=== PATIENT | female | born 1970 | race Caucasian/White ===

== ENCOUNTER 2017-07-15 19:31 | Inpatient (IN) ==
[2017-07-15] MEDS ORDERED: ONDANSETRON 4 MG/2 ML VIAL IV STA (20:47)
[2017-07-15] MEDS ORDERED: PANTOPRAZOLE 40 MG VIAL IV STA (20:47)
[2017-07-15] MEDS ORDERED: CLINDAMYCIN INJ 900 MG in PREMIX 1 EACH IV STA (20:47)
[2017-07-15] MEDS ORDERED: KETOROLAC 30 MG/1 ML VIAL IV STA (20:47)
[2017-07-15] MEDS ORDERED: DICYCLOMINE 20 MG/2 ML AMP IM ONE ×2 (20:50→22:11)
--- NOTE | 2017-07-15 20:53 | Emergency Department Note ---
Arrival - Arrival Chief Complaint: Abdominal / Flank Pain Stated Complaint: feel like inside is on fire/posssible staff ED Nursing Triage Note: C/O Generalized abd pain/nausea/vomiting. Onset 1330 today. Pt reports that it feels like her insides are on fire. Last BM-today- normal. Denies urinary s/s. Unknown fever at home. Pt also reports that she has an abscess to right buttock that has been there for a couple of days. Mode of Arrival: Ambulatory Limitations: No Limitations Source: Patient Time Seen by Provider: 07/15/17 20:47 - History of Present Illness HPI Narrative: This 46-year-old white female presents with onset of midepigastric intense burning pain and nausea of abrupt onset 6 hours ago. She denies preethi vomiting , chills, fever, diarrhea, heartburn, belching, indigestion, history of peptic ulcer disease, pancreatitis, or inflammatory bowel disease. She cannot relate the pain to anything nor has she experienced anything similar in the past. Coincident to this is complaints of a tender hard lesion of the right buttocks. This she relates has been present for a week and again she denies systemic chills or fever. Currently she is in no acute distress. Onset (ago): hour(s) Date of Last Menstrual Period: 2 weeks ago Allergies/Adverse Reactions: Allergies Allergy/AdvReac Type Severity Reaction Status Date / Time metoclopramide [From Reglan] AdvReac Intermediate Unknown/Unable Verified 19:49 to obtain Home Medications: Home Medications Medication Instructions Recorded Confirmed Type No Known Home Medications [No 07/15/17 07/15/17 History Known Home Medications] Review of System - Review of System 12 point system: reviewed and no additional remarkable complaints except as stated - Review of System Constitutional: Present: as per HPI Gastrointestinal: Present: as per HPI Skin: Present: as per HPI Medical,Surgical,& Family Hx - Social History Smoking Status: Never smoker Frequency of Alcohol Use: None Type of Drug Use: None Exam Physical Examination: GENERAL: Well developed, well nourished white female in no acute distress. HEENT: Normocephalic. No trauma. Moist mucous membranes. EOMI. PERRLA. ENT NML NECK: Supple. No adenopathy. CARDIAC: Regular. No murmurs heart rate 75 CHEST: Clear to auscultation. No respiratory distress. O2 99% ABDOMEN: Soft. Tender mid epigastrium and right upper quadrant. Hypoactive bowel sounds. 2 cm hard firm tender cellulitis. Abscess of the right buttocks EXTREMITIES: No trauma. Normal ROM. No pedal edema. SKIN: No diaphoresis. No rash. Buttocks as above NEURO: Alert. Neuro intact no focal deficits. Vital Signs: Vital Signs Temperature 98.8 F 07/15/17 19:49 Pulse Rate 67 07/15/17 21:10 Respiratory Rate 20 07/15/17 21:10 Blood Pressure 114/75 07/15/17 21:10 O2 Sat by Pulse Oximetry 100 07/15/17 21:10 Course - Reevaluation(s) Reevaluation #1: Discussed with patient that she has acute cholecystitis as well as a complex cystic right adnexal mass - Consultations Consultation #1: Discussed with Dr. Singleton who will admit for further evaluation treatment. Results - Labs CBC & BMP: 07/15/17 21:48 07/15/17 21:48 Labs: I have reviewed the lab and noted its gross normalcy. - Impressions EKG: Sinus rhythm at 61 with normal NM interval and QRS duration. Normal ST segments. Normal EKG. - Diagnostic Findings Procedure: CT Abdomen and Pelvis: image reviewed by me, report reviewed by me ( Acute cholecystitis and complex cystic right adnexal mass) Disposition Clinical Impression: Acute cholecystitis, Right adnexal mass Case discussed with: patient, patient's family Disposition: Still a Patient Condition: Stable Time of Disposition: 00:01
--- NOTE | 2017-07-15 21:43 | EKG Report ---
Stationary ECG Study [facility] ER Test Date: 07/15/2017 9:43:23 PM Pat Name: EL MORATAYA Department: Room: Gender: F Geophysical Party Chief: : 1970 Requested by: Tony Miguel Order Number: [id number] Reading MD: RASTA SKY Intervals [place] Rate: 61 P: 74 [place]: 146 QRS: 49 QRSD: 86 T: 46 QT: 403 QTc: 407 Interpretive Statements SINUS RHYTHM Electronically Signed On 07-16-17 07:59:39 CDT by RASTA SKY [email or web address]
[2017-07-15] MEDS ORDERED: ONDANSETRON 4 MG/2 ML VIAL ONE (22:11)
[2017-07-15] MEDS ORDERED: CLINDAMYCIN INJ 50 ML IV ONE (22:11)
[2017-07-15] MEDS ORDERED: KETOROLAC 30 MG/1 ML VIAL ONE (22:11)
[2017-07-15] MEDS ORDERED: PANTOPRAZOLE 40 MG VIAL IV ONE (22:11)
[2017-07-15 22:36] LABS: Basophils % 0.4 % (0.0-0.8); Hematocrit 39.5 VOL% (35.7-47.0); Hemoglobin 13.1 GM/DL (12.0-16.0); Immature Granulocytes % 0.2 %; Immature Granulocytes Absolute 0.02 #; Lymphocytes # 1.1 10*3/uL (1.4-4.0); Lymphocytes % 10.9 % (21.3-54.2); Mean Corpuscular HGB Conc 33.2 GM/DL (32-36); Mean Corpuscular Hemoglobin 29 PG (27-34); Mean Corpuscular Volume 85.9 FL (87-102); Mean Platelet Volume 11.5 FL (9.6-12.0); Monocytes # 0.5 10*3/uL (0.11-0.8); Monocytes % 4.8 % (1.7-12.7); Neutrophils # 8.3 10*3/uL (1.4-7.4); Neutrophils % 83.7 % (38.7-73.9); Platelet Count 197 T/CUMM (130-400); Red Cell Distribution Width 14.9 % (9.3-17.3); White Blood Count 9.9 T/CUMM (4-12)
[2017-07-15 22:51] LABS: Apearance,Urine Slightly Hazy (Clear); Bacteria,Urine Few /HPF (Few); Bilirubin,Urine Negative (Negative); Blood, Urine Small mg/dL (Negative); Glucose,Urine (UA) 150 mg/dL (Negative); Ketones,Urine 5 mg/dL (Negative); Mucus,Urine Occasional /LPF (Occasional); Nitrite,Urine Negative (Negative); Protein,Urine Negative; RBC,Urine 3 /HPF (0-4); Squamous Epithelial Cell,Urine Occasional /HPF (0-10); Urine Color Yellow (Yellow); Urine Specific Gravity 1.015 (1.001-1.035); Urine Urobilinogen < 2.0 EU/DL (0.2-1.0); WBC,Urine 4 /HPF (0-6)
[2017-07-15 22:57] LABS: Lactic Acid 1.2 MMOL/L (0.4-2.0)
[2017-07-15 22:58] LABS: Albumin 4.1 G/DL (3.4-5.0); Bilirubin,Total 0.4 MG/DL (0.2-1.0); Calcium 9.1 MG/DL (8.5-10.1); Osmolality,Calculated 277.5 MOS/KG (273-304); Potassium 3.9 MMOL/L (3.5-5.1); Total Protein 7.6 G/DL (6.4-8.3)
[2017-07-16] MEDS ORDERED: LEVOFLOXACIN INJ 750 MG in PREMIX 1 EACH IV STA (00:04)
[2017-07-16] MEDS ORDERED: ONDANSETRON 4 MG/2 ML VIAL IV PRN ×2 (00:04→16:28)
[2017-07-16] MEDS ORDERED: ONDANSETRON 4 MG/2 ML VIAL IV ONE (00:25)
[2017-07-16] MEDS ORDERED: HYDROmorphone 2 MG/1 ML VIAL IV ONE (00:25)
[2017-07-16] MEDS ORDERED: ONDANSETRON 4 MG/2 ML VIAL ONE ×3 (00:26→17:25)
[2017-07-16] MEDS ORDERED: LEVOFLOXACIN INJ 150 ML IV ONE (00:26)
[2017-07-16] MEDS ORDERED: HYDROmorphone 2 MG/1 ML VIAL ONE ×2 (00:26→16:10)
[2017-07-16] MEDS: LACTATED RINGERS 1,000 ML IV SCH ×2 (02:28→12:30)
--- NOTE | 2017-07-16 07:23 | General Surg History&Physical ---
Assessment and Plan (1) Cholecystitis Status: Acute Assessment and plan: I have recommended laparoscopic cholecystectomy for cholecystitis. I have discussed the risks, benefits, and alternatives of the operation with the patient, and the expected outcomes have been reviewed. The patient would like to proceed with the operation. She also has a right adnexal cystic mass that can be addressed later. This is not symptomatic. She does have a history of ovarian cyst she says. Current Visit: Yes History of Present Illness Chief complaint: Abdominal pain History of present illness: Ms. Diaz is a 46 year old female who developed abdominal pain around 1:00 yesterday after eating and lasted about 30 minutes. It subsided but came back again was worse located in the midepigastrium and right upper quadrant. She had nausea no vomiting. [place] like her stomach was on fire. She has had tubal ligation and some other abdominal surgery but she is not sure the type. Home Medications Medication Instructions Recorded Confirmed Type No Known Home Medications [No 07/15/17 07/15/17 History Known Home Medications] Allergies Allergy/AdvReac Type Severity Reaction Status Date / Time metoclopramide [From Reglan] AdvReac Intermediate Unknown/Unable Verified 19:49 to obtain Medical,Surgical,& Family Hx - Medical History Genitourinary: History of: Bladder Problem (bladder sling), Recurring Urinary Tract Infections (4 to 5 times a year.) Gastrointestinal: History of: GERD Reproductive: History of: Abnormal Pap Smear (2013), Ovarian Cysts (resolved.) Other: History of: Miscellaneous Medical Problems (lyme disease/ resolved) - Surgical History Thoracic Surgeries: Patient denies;: Organ Transplant Abdominal Surgeries: Surgical HX of: Appendectomy (1983) Reproductive Surgeries: Surgical HX of;: Section (2002), Tubal Ligation (2013) Patient denies;: Genitourinary Surgery - Family History Family History: Reports;: Family Cancer (Dad melanoma), Family Hematology (Dad has to have blood drawn off.), Family Hypertension (mom and dad), Family Stroke (mother passed from a stroke. 2012) Denies;: Family Diabetes, Family Heart Disease, Family Psychiatric Problems - Social History Smoking Status: Never smoker Frequency of Alcohol Use: None Type of Drug Use: None Exam - Constitutional Vitals: Period Temp Pulse Resp BP Sys/[place] Pulse Ox Last 24 Hr 97.3 F-98.8 F 61-82 16-20 86-114/53-77 98-100 General appearance: normal weight, no acute distress - Head Head exam: Present: normal inspection, normocephalic - Eye Eye exam: Present: EOMI. Absent: scleral icterus Pupils: Present: SEBAS - ENT ENT exam: Present: normal exam Mouth exam: Present: normal external inspection, normal voice - Neck Neck exam: Present: normal inspection, trachea midline - Respiratory Respiratory exam: Present: clear to auscultation bilaterally. Absent: accessory muscle use, chest wall tenderness - Cardiovascular Cardiovascular exam: Present: RRR. Absent: systolic murmur, tachycardia - GI/Abdominal GI/Abdominal exam: Present: Costa's sign, tenderness, soft. Absent: rebound - Extremities Exam Extremities exam: Present: normal inspection, normal capillary refill - Back Exam Back exam: Present: normal inspection - Neurological Exam Neurological exam: Present: alert, oriented X3 Speech: Present: normal - Skin Skin exam: Present: normal color, warm - Constitutional Constitutional: Present: as per HPI - EENT Nose, mouth and throat: Present: as per HPI - Cardiovascular Cardiovascular: Present: as per HPI - Respiratory Respiratory: Present: as per HPI - Gastrointestinal Gastrointestinal: Present: as per HPI - Genitourinary Genitourinary: Present: as per HPI - Musculoskeletal Musculoskeletal: Present: as per HPI - Neurological Neurological: Present: as per HPI - Endocrine Endocrine: Present: as per HPI Hematologic/Lymphatic: Present: as per HPI Results - Labs CBC & BMP: 07/15/17 21:48 07/15/17 21:48 - Diagnostic Findings Procedure: CT Abdomen and Pelvis: image reviewed by me, report reviewed by me ( There is inflammation in the gallbladder with no stones seen.)
--- NOTE | 2017-07-16 07:33 | CT Report ---
CT abdomen pelvis w con Indication: Abdominal pain/pelvic pain/buttocks abscess Comparison: None Technique: Multiple axial tomographic images of the abdomen and pelvis were obtained after the administration of 100 cc Omnipaque 350 intravenous contrast. Findings: Mild dependent change of the lungs present. Several probable cysts demonstrated within liver, many of which are lobulated. The largest is located within the left lobe measures up to 2.6 cm. Several of these are too small to characterize completely. Wall thickening of the gallbladder suggested. The pancreas is grossly unremarkable. The spleen is grossly unremarkable. The bilateral adrenal glands are grossly unremarkable. The bilateral kidneys are grossly unremarkable. The urinary bladder is incompletely distended. 5.1 cm right adnexal cyst which appears somewhat complex. Uterus and left adnexa grossly unremarkable. There is no evidence of gastrointestinal obstruction or acute appendicitis. Visualized vasculature grossly unremarkable. Visualized osseous and surrounding soft tissue structures demonstrate no acute abnormality. IMPRESSION: Nonspecific gallbladder wall thickening suggested. Cholecystitis not excluded. Consider ultrasound and/or nuclear medicine hepatobiliary imaging study for further evaluation. 5.1 cm right adnexal cyst which appears somewhat complex. Recommend ultrasound for further evaluation. Other/detailed findings as above. Preliminary report was issued by [facility]. The CT exam was performed using one or more of the following dose reduction techniques: Automated exposure control, adjustment of the mA and/or kV according to patient size, or use of iterative reconstruction technique. PROCEDURE INTERPRETED AT [facility] DEPARTMENT OF RADIOLOGY Final Report Signed by: Dr Kirill Felipe
[2017-07-16] MEDS ORDERED: PANTOPRAZOLE 40 MG TABLET PO ONE (09:09)
[2017-07-16] MEDS ORDERED: DIAZEPAM 5 MG TABLET PO ONE (09:09)
[2017-07-16] MEDS ORDERED: HYDROmorphone 2 MG/1 ML VIAL IV PRN ×2 (10:06→16:28)
--- NOTE | 2017-07-16 12:33 | Ultrasound Report ---
Pelvic ultrasound complete. Indication: Right adnexal mass. The uterus is normal in size and configuration. It measures 6.9 x 4.4 x 4.8 cm. The endometrium is of normal thickness and is uniform, at 6 mm. The right ovary measures 4.7 x 4.2 x 3.7 cm. It contains a complex cyst measuring 4.2 x 3.7 x 3.2 cm, with a fluid level. The left ovary measures 2.3 x 1.2 x 1.7 cm and contains a 6 x 9 mm cyst. No free fluid in the pelvis. Impression: Complex cyst in the right ovary, measuring up to 4.2 cm. Hemorrhage suggested within it. Short-term follow-up in 6 weeks recommended. The Ultrasound images were captured and stored. PROCEDURE INTERPRETED AT [facility] DEPARTMENT OF RADIOLOGY Final Report Signed by: Dr. Ronda Moreno
[2017-07-16] MEDS ORDERED: LIDOCAINE 1%/EPI INJ 20 ML VIAL ONE (14:24)
[2017-07-16] MEDS ORDERED: TISSUE ADHESIVE 1 EACH APPLICATOR TOP ONE (14:24)
--- NOTE | 2017-07-16 15:49 | Operative Note ---
Date of procedure: 07/16/17 Pre-op diagnosis: Acute cholecystitis Post-op diagnosis: same Procedure: Preoperative diagnosis Acute cholecystitis Postoperative diagnosis Same Procedures performed Laparoscopic cholecystectomy Findings Acute cholecystitis was seen. The critical view of safety was obtained prior to placing clips on the cystic duct and cystic artery. Complications None apparent Specimen Gallbladder Anesthesia GETA Blood loss 5 mL Indications Acute cholecystitis. The risks, benefits, and alternatives of the operation were discussed with the patient in detail, and the expected outcomes were reviewed. In particular, the risk of bowel injury, liver injury, bile duct leak and bile duct injury, as well as pancreatitis and retained or drop stones were discussed in detail. All the patient's questions were answered. She like to proceed with the operation. Description of procedure The patient was taken to the operating room and transferred to the operating table in the supine position. Pressure points were padded and SCDs were placed to bilateral lower extremities. General endotracheal anesthesia was administered. The abdomen was prepped chlorhexidine and draped sterilely. Preoperative antibiotics were administered, a timeout was performed. The abdomen was entered in a supraumbilical location of the Veress needle. The skin incision was made in the supraumbilical location with a 11 blade scalpel after local anesthetic was administered. Umbilical stalk was grasped with a penetrating towel clip. A Veress needle was used to enter the peritoneal cavity confirmed by double click technique. Aspiration was negative. Saline drop test confirmed intraperitoneal location. The abdomen was insufflated to 15 mmHg with an initial insufflation pressure of 2 mmHg. The Veress needle was removed and a 5 mm trocar was placed blindly. The towel clip was removed. Diagnostic laparoscopy was performed. There is no evidence of Veress needle or trocar injury. The patient was placed in reverse Trendelenburg and left side rolled down position. Under direct visualization, and after local anesthetic was administered, an 11 mm midepigastric trocar and 2 right subcostal 5 mm trochars were placed. The gallbladder was significantly inflamed with acute inflammatory changes and wall thickening. There is adhesions with the omentum and the gallbladder present. The gallbladder was grasped at the fundus and infundibulum. The cystic plate peritoneum was dissected into the critical view of safety was obtained. The cystic duct and cystic artery were clipped twice initially and once laterally and divided laparoscopically with scissors between clips. Gallbladder was removed from the gallbladder fossa using hook electrocautery. The gallbladder was placed in a Endo Catch retrieval bag through the 11 mm trocar and removed through the trocar with no significant fascial extension of the incision. The gallbladder fossa was suction irrigated until the effluent was clear. The CO2 was released from the abdomen and the trochars were removed. The skin incisions were closed with 4-0 Monocryl subcuticular suture and sterile skin glue. The patient was awakened from anesthesia and transferred to recovery. Postoperative plan Advance diet as tolerated Pain control Anesthesia: ANAI, local Surgeon / Physician: Isrrael Singleton Estimated blood loss: minimal Specimens: other (gallbladder) Condition: stable Disposition: PACU Results - Labs CBC & BMP: 07/15/17 21:48 07/15/17 21:48 Discharge Plan - Discharge Data Disposition: Disch To Home/Self Care Condition at Discharge: Stable Discharge Diet: advance to your usual diet Activity: no lifting Hygiene: may shower Weight Bearing at Discharge: weight bear as tolerated Driving: other (Do not drive or operate heavy machinery for at least 24 hours and after you are off of narcotic pain medications.) Contact your physician if you experience:: fever over 101, Difficulty voiding, Redness or swelling, Nausea/Vomiting, Shortness of breath, Bleeding, pain uncontrolled by pain medications Wound / Dressing Care Instructions: It is okay to shower. Do not scrub the incision aggressively or submerge it under water. - Discharge Medications New HYDROcodone/ACETAMIN 7.5-325 [[place] 7.5-325] 1 tablet PO Q4H PRN #20 tablet PRN Reason: Abdominal Pain - Follow Up or Referral Follow Up: Isrrael Singleton MD [Physician] - 2 Weeks - Forms/Instructions
--- NOTE | 2017-07-16 16:04 | Anesthesia Post-Op ---
Anesthesia Post OP - Post Ansesthetic Evaluation Patient seen in post op: Yes Resp: within normal limits CV: within normal limits Mental: within normal limits Temp: within normal limits Plea-Mf-Etqwmquuo: within normal limits Nausea and Vomiting: within normal limits Pain: within normal limits
[2017-07-16] MEDS ORDERED: PROPOFOL 200 MG/20 ML VIAL IV ONE (17:24)
[2017-07-16] MEDS ORDERED: SEVOFLURANE 1 UNIT/15 MINUTE INH ONE (17:24)
[2017-07-16] MEDS ORDERED: MIDAZOLAM 2 MG/2 ML VIAL ONE (17:24)
[2017-07-16] MEDS ORDERED: ROCURONIUM 100 MG/10 ML VIAL IV ONE (17:25)
[2017-07-16] MEDS ORDERED: GLYCOPYRROLATE 0.4 MG/2 ML VIAL ONE (17:25)
[2017-07-16] MEDS ORDERED: fentaNYL 100 MCG/2 ML VIAL ONE (17:25)
[2017-07-16] MEDS ORDERED: KETOROLAC 30 MG/1 ML VIAL ONE (17:25)
[2017-07-16] MEDS ORDERED: DEXAMETHASONE 10 MG/1 ML VIAL ONE (17:25)
[2017-07-16] MEDS ORDERED: NEOSTIGMINE 10 MG/10 ML VIAL ONE (17:25)
[2017-07-16 22:29] VITALS: BP 102/69
--- NOTE | 2017-07-18 11:18 | Pathology Report from [facility] ---
[facility] [place] ACCESSION # : [id number] PATIENT NAME : Niyah Diaz ORDERING DR : Isrrael Singleton MD CLINICAL HX: Acute cholecystitis POST-OP DX: Same SPECIMEN INFO: Gallbladder GROSS DESCRIPTION: The specimen is received in formalin labeled with the patients name and consists of an intact gallbladder measuring 7.5 x 3.0 cm. The serosa is smooth and blue-ayala. The wall averages 0.2 cm in thickness. The mucosal surface displays diffuse yellow streaking. The lumen is filled with brown bile with no stones seen. Located at the neck of the gallbladder is a possible lymph node measuring 0.7 x 0.5 cm. Surveillance Officer sections submitted in one cassette. DIAGNOSIS FOR NIYAH DIAZ: GALLBLADDER, CHOLECYSTECTOMY: Acute and chronic cholecystitis. Benign periductal lymph node. COLLECTED DATE: 07/17/2017 [facility] [place] REPORT DATE: 07/18/2017 ELECTRONICALLY SIGNED BY: Zuly Voss M.D. 07/18/2017 - 9:36:41 MTDD
== END 2017-07-16 20:25 | disposition home or self-care (01) | DRG 419 ==
LOC: N.ED 19:31 → N.EDINP 07-16 00:02 → N.3E 07-16 00:45
PROVIDERS: ADMIT Surgery; ATTEND Surgery
PROC: LAPCHOL (2017-07-16 14:49)